=== PATIENT | male | born 1995 | race Caucasian/White ===

== ENCOUNTER 2017-04-02 18:32 | Emergency (ER) | payer OTHER ==
[~2017-04-02] VITALS: Ht 188 cm; Wt 72.0 kg
[2017-04-02 18:34] VITALS: BP 147/104; PULSE 110; RESP 20; TEMP 98.4; O2SAT 98
[2017-04-02 19:47] VITALS: BP 174/95; PULSE 126; RESP 15; O2SAT 100
[2017-04-02] MEDS ORDERED: SODIUM CHLOR 0.9% 1000 ML INJ 1,000 ML IV SCH (19:51)
--- NOTE | 2017-04-02 19:53 | PD ---
HPI Chief Complaint: Medical Clearance Time Seen by Provider: 19:45 Travel History International Travel<30 days: No Contact w/Intl Traveler<30days: No Traveled to known affect area: No History of Present Illness HPI This is a 21-year-old male with no significant past medical history who presents for evaluation. He reports that for several years he has had a elevated resting heart rate in the 90s as well as occasional palpitations. He thought nothing of it and has never been evaluated for this issue. He reports that 2 weeks ago he had some cramping in the calf muscles which has essentially resolved. Over the past several days he has had more frequent palpitations as well as a resting hand tremor. He reports that his mom has a history of Graves ' disease and this concerned him and for this reason he presents for evaluation. He denies any drug use. He endorses occasional alcohol use. He denies chest pain or shortness of breath. He does feel quite anxious currently. He denies any recent exertional activities, he does not believe that he is dehydrated. Denies recent illness, recent fevers or chills, nausea or vomiting, diarrhea or constipation. He has no other complaints at this time. [facility] Past Medical History Medical History: Denies Significant Hx Diminished Hearing: No Tetanus Vaccination: < 5 Years Influenza Vaccination: No Past Surgical History Surgical History: No Previous Surgery Social History Alcohol Use: No Tobacco Use: No Substance Use: No Allergies-Medications (Allergen,Severity, Reaction): Coded Allergies: No Known Allergies (Unverified , 04/02/17) Review of Systems Except as stated in HPI: all other systems reviewed are Neg Physical Exam Narrative GENERAL: Well developed well-nourished male who appears anxious on initial examination. Tachycardic. SKIN: Warm and dry. HEAD: Atraumatic. Normocephalic. EYES: Pupils equal and round. No scleral icterus. No injection or drainage. ENT: No nasal bleeding or discharge. Mucous membranes pink and moist. NECK: Trachea midline. No JVD. CARDIOVASCULAR: Regular rate and rhythm. No murmur appreciated. RESPIRATORY: No accessory muscle use. Clear to auscultation. Breath sounds equal bilaterally. GASTROINTESTINAL: Abdomen soft, non-tender, nondistended. Hepatic and splenic margins not palpable. MUSCULOSKELETAL: No obvious deformities. No edema. NEUROLOGICAL: Awake and alert. No obvious cranial nerve deficits. Motor grossly within normal limits. Normal speech. PSYCHIATRIC: Appropriate mood and affect; insight and judgment normal. Data Data Last Documented VS Vital Signs Date Time Temp Pulse Resp B/P (MAP) Pulse Ox O2 Delivery O2 Flow Rate FiO2 04/02/17 19:47 126 15 174/95 (121) 100 Room Air 04/02/17 18:34 98.4 Orders Orders Electrocardiogram (04/02/17 18:46) Complete Blood Count With Diff (04/02/17 19:51) Comprehensive Metabolic Panel (04/02/17 19:51) Sodium Chlor 0.9% 1000 Ml Inj (Ns 1000 M (04/02/17 19:51) Creatine Kinase (Cpk) (04/02/17 19:51) Magnesium (Mg) (04/02/17 19:51) Thyroid Stimulating Hormone (04/02/17 19:51) Ecg Monitoring (04/02/17 19:51) Drug Screen, Random Urine (04/02/17 19:53) Potassium Chloride (Kcl) (04/02/17 21:30) Labs Laboratory Tests Test 04/02/17 19:55 04/02/17 20:15 White Blood Count 7.4 TH/MM3 Red Blood Count 5.25 MIL/MM3 Hemoglobin 15.9 GM/DL Hematocrit 46.5 % Mean Corpuscular Volume 88.6 FL Mean Corpuscular Hemoglobin 30.2 PG Mean Corpuscular Hemoglobin Concent 34.1 % Red Cell Distribution Width 12.9 % Platelet Count 220 TH/MM3 Mean Platelet Volume 8.4 FL Neutrophils (%) (Auto) 57.3 % Lymphocytes (%) (Auto) 33.7 % Monocytes (%) (Auto) 7.7 % Eosinophils (%) (Auto) 1.0 % Basophils (%) (Auto) 0.3 % Neutrophils # (Auto) 4.2 TH/MM3 Lymphocytes # (Auto) 2.5 TH/MM3 Monocytes # (Auto) 0.6 TH/MM3 Eosinophils # (Auto) 0.1 TH/MM3 Basophils # (Auto) 0.0 TH/MM3 CBC Comment DIFF FINAL Differential Comment Blood Urea Nitrogen 8 MG/DL Creatinine 1.06 MG/DL Random Glucose 101 MG/DL Total Protein 8.3 GM/DL Albumin 4.9 GM/DL Calcium Level 9.4 MG/DL Magnesium Level 2.3 MG/DL Alkaline Phosphatase 77 U/L Aspartate Amino Transf (AST/SGOT) 18 U/L Alanine Aminotransferase (ALT/SGPT) 24 U/L Total Bilirubin 0.5 MG/DL Sodium Level 140 MEQ/L Potassium Level 3.3 MEQ/L Chloride Level 103 MEQ/L Carbon Dioxide Level 30.5 MEQ/L Anion Gap 7 MEQ/L Estimat Glomerular Filtration Rate 88 ML/MIN Total Creatine Kinase 90 U/L Thyroid Stimulating Hormone 3rd Gen 2.310 uIU/ML Urine Opiates Screen NEG Urine Barbiturates Screen NEG Urine Amphetamines Screen NEG Urine Benzodiazepines Screen NEG Urine Cocaine Screen NEG Urine Cannabinoids Screen NEG MDM Medical Decision Making Medical Screen Exam Complete: Yes Emergency Medical Condition: Yes Medical Record Reviewed: Yes Differential Diagnosis PVC, PAC, SVT, sinus tachycardia, atrial fibrillation, hyperthyroidism, electrolyte abnormality, dehydration, rhabdomyolysis, myositis, [place]'s disease Narrative Course This is a 21-year-old male who reports that for most of his life he has had a high resting heart rate with occasional palpitations. He reports worsening palpitations over the past few weeks, mild resting tremor, as well as cramping in his legs which has resolved. On initial examination is tachycardic and anxious. The patient was placed on ECG monitoring pulse oximetry. A 12-lead EKG will be obtained. The patient was given IV fluids. Plan is for basic lab work. The patient's lab work has been reviewed his EKG reveals sinus tachycardia with a rate of 105. CBC is unremarkable. TSH is 2.3. Potassium is 3.3, he will be given 40 mEq of oral potassium chloride. Toxicology screen is negative. The patient was reassessed, he appears much less anxious now and his heart rate has improved to 77. He reports that he had 2 tests today and he was just feeling very overwhelmed and this is what prompted his visit today. He has an appointment with a new primary care physician tomorrow to establish care. He may benefit from outpatient Holter monitoring if his palpitations persist. He is being given a copy of all of his lab work prior to discharge that he can follow up with his primary care physician tomorrow as scheduled. He is stable for discharge. Diagnosis Primary Impression: Palpitations Additional Impression: Hypokalemia Additional Instructions: Follow-up with primary care physician as scheduled and return for any emergent medical conditions. Med/Other Pt SpecificInfo: No Change to Meds Disposition: 01 DISCHARGE HOME Condition: Stable Stuart Boland Apr 02, 2017 19:53
[2017-04-02 20:37] LABS: AUTOMATED NEUTROPHIL # 4.2 TH/MM3 (1.8-7.7); BASOPHIL % 0.3 % (0.0-2.0); EOSINOPHIL # 0.1 TH/MM3 (0-0.4); HEMATOCRIT 46.5 % (39.0-51.0); HEMO FLAGS DIFF FINAL; LYMPH % 33.7 % (9.0-44.0); LYMPHOCYTE # 2.5 TH/MM3 (1.0-4.8); MEAN CELL VOLUME 88.6 FL (80.0-100.0); MEAN CORPUSCULAR HEMOGLOBIN 30.2 PG (27.0-34.0); MEAN CORPUSCULAR HGB CONC 34.1 % (32.0-36.0); MONO % 7.7 % (0.0-8.0); NEUT % 57.3 % (16.0-70.0); PLATELET COUNT 220 TH/MM3 (150-450); RED BLOOD COUNT 5.25 MIL/MM3 (4.50-5.90); RED CELL DISTRIBUTION WIDTH 12.9 % (11.6-17.2); WHITE BLOOD COUNT 7.4 TH/MM3 (4.0-11.0)
[2017-04-02 21:09] LABS: ALKALINE PHOSPHATASE 77 U/L (45-117); ALT (GPT) 24 U/L (12-78); ANION GAP 7 MEQ/L (5-15); AST (GOT) 18 U/L (15-37); BICARBONATE 30.5 MEQ/L (21.0-32.0); BLOOD UREA NITROGEN 8 MG/DL (7-18); CHLORIDE 103 MEQ/L (98-107); GLOMERULAR FILTRATION RATE 88 ML/MIN (>89); MAGNESIUM 2.3 MG/DL (1.5-2.5); POTASSIUM 3.3 MEQ/L (3.5-5.1); SODIUM (NA) 140 MEQ/L (136-145); TOTAL BILIRUBIN ADULT 0.5 MG/DL (0.2-1.0)
[2017-04-02 21:21] LABS: CREATINE KINASE 90 U/L (39-308)
[2017-04-02] MEDS ORDERED: POTASSIUM CHLORIDE 20 MEQ CONTROLLED RELEASE TAB PO ONE (21:30)
[2017-04-02 21:41] VITALS: BP 145/79; PULSE 82; RESP 18; O2SAT 99
--- NOTE | 2017-04-03 14:20 | EKG ---
Date Performed: 04/02/2017 Time Performed: 18:51:33 PTAGE: 21 years EKG: SINUS TACHYCARDIA POSSIBLE LEFT ATRIAL ENLARGEMENT INDETERMINATE AXIS RIGHT BUNDLE BRANCH B LOCK LEFT POSTERIOR FASCICULAR BLOCK ABNORMAL ECG NO PREVIOUS TRACING DOCTOR: Todd Almonte Interpretating Date/Time 04/03/2017 14:14:13
== END 2017-04-02 22:19 | disposition home or self-care (01) ==
LOC: NEPC 18:32
DX: R00.2 Palpitations (principal); E87.6 Hypokalemia
CPT/HCPCS: 80053; 80307; 82550; 83735; 84443; 85025; 93005; 96360; 99284; J7030